=== PATIENT | male | born 1995 | race American Indian/Alaskan Native ===

== ENCOUNTER 2018-02-13 00:03 | Emergency (ER) | payer SELFPAY ==
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
[2018-02-13] MEDS ORDERED: KEFLEX PO ONE (02:44)
[2018-02-13] MEDS ORDERED: BOOSTRIX IM ONE (02:44)
[2018-02-13] MEDS ORDERED: ULTRAM PO ONE (02:46)
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
[2018-02-13 04:24] VITALS: BP 120/60
== END 2018-02-13 04:00 | disposition home or self-care (01) ==
LOC: ED 00:03
DX: S90.819A Abrasion, unspecified foot, initial encounter (principal); F17.200 Nicotine dependence, unspecified, uncomplicated; F12.10 Cannabis abuse, uncomplicated; W22.8XXA Striking against or struck by other objects, initial encounter; Y93.89 Activity, other specified; Y99.8 Other external cause status; Y92.89 Other specified places as the place of occurrence of the external cause
CPT/HCPCS: 90471; 90715; 99283

== ENCOUNTER 2021-04-28 14:06 | Emergency (ER) | payer OTHER ==
[2021-04-28] MEDS ORDERED: KETOROLAC 30 MG/1 ML INJ IV ONE (14:39)
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
[2021-04-28 15:42] LABS: Basophils # (Auto) 0.1 K/mm3 (0.0-0.1); Eosinophils # (Auto) 0.2 K/mm3 (0.0-0.4); Eosinophils % (Auto) 2.1 % (0.0-4.3); Hematocrit 48.1 % (35.5-45.6); Hemoglobin 15.8 gm/dl (11.8-15.2); Lymphocytes # (Auto) 1.8 K/mm3 (1.2-5.4); Lymphocytes % (Auto) 23.8 % (13.4-35.0); Mean Corpuscular HGB Conc 33 % (32-34); Mean Corpuscular Volume 90 fl (84-94); Monocytes # (Auto) 0.7 K/mm3 (0.0-0.8); Monocytes % (Auto) 9.5 % (0.0-7.3); Platelet Count 264 K/mm3 (140-440); Red Blood Count 5.33 M/mm3 (3.65-5.03); Red Cell Distribution Width 13.1 % (13.2-15.2)
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
[2021-04-28 16:03] LABS: Alanine Aminotransferase 14 units/L (7-56); Albumin 5.2 g/dL (3.9-5); BUN/Creatinine Ratio 18; Blood Urea Nitrogen 18 mg/dL (9-20); Calcium 9.9 mg/dL (8.4-10.2); Hemolysis Index 10
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
[2021-04-28 17:37] VITALS: BP 132/89
== END 2021-04-28 17:35 | disposition home or self-care (01) ==
LOC: ED 14:06
DX: M79.18 Myalgia, other site (principal); R51.9 Headache, unspecified; R10.9 Unspecified abdominal pain; R07.9 Chest pain, unspecified; F17.200 Nicotine dependence, unspecified, uncomplicated; V89.2XXA Person injured in unspecified motor-vehicle accident, traffic, initial encounter; Y93.89 Activity, other specified; Y92.89 Other specified places as the place of occurrence of the external cause; Y99.8 Other external cause status
CPT/HCPCS: 36415; 71101; 72040; 74177; 80053; 85025; 96374; 99284; J1885; Q9967